=== PATIENT | female | born 1965 | race Caucasian/White ===

== ENCOUNTER → 2020-10-19 | Day surgery (SDC) | payer MEDICAID ==
[~2020-10-19] VITALS: Ht 160 cm; Wt 73.9 kg
[~2020-10-19] MED LIST: BALANCED SALT IRRIG SOLN 15ML ONE; BALANCED SALT IRRIG SOLN COMB1 500ML OP ONE; CEFAZOLIN SODIUM 1000MG/VIAL ONE; CIPROFLOXACIN 0.3% OPHTH SOLN 2.5ML ONE; DEXAMETHASONE 4MG/ML 1ML VIAL ONE; DIPHENHYDRAMINE 50MG/ML VIAL ONE; FENTANYL CITRATE/PF 50MCG/ML 2ML VIAL ONE; HYALURONATE SODIUM 10 MG/ML 0.55ML SYRINGE IO ONE; HYDRALAZINE 20MG/ML VIAL ONE; HYDROMORPHONE HCL/PF 2MG/ML (OR) ONE; INSULIN REGULAR (HUMULIN R) 300UNITS/3ML VIAL SUBCUT NR; INSULIN REGULAR (HUMULIN R) 300UNITS/3ML VIAL SUBCUT ONE; INSULIN REGULAR (HUMULIN R) UD 100 UNITS/ML SYR SUBCUT NR; LIDOCAINE HCL 1% 20ML VIAL (Pyxis) INJ ONE; LIDOCAINE HCL/PF 2% 20 MG/ML 10ML VIAL ONE; METF-414 PO; MIDAZOLAM HCL 2 MG/2 ML VIAL ONE; NEO/POLYMYX B SULF/DEXAMETH OPHTH OINT 3.5GM ONE; PHENYLEPHRINE HCL 10% OPHTH DROPS 5ML LEFTEYE SCH; PREDNISOLONE ACETATE 1% OPHTH DROPS 5ML ONE; PROPOFOL 200MG/20ML VIAL IV ONE; ROCURONIUM BROMIDE 10MG/ML VIAL 5ML IV ONE; SODIUM CHLORIDE 0.9% 1,000 ML IV SCH; TROPICAMIDE 1% OPHTH DROPS 15ML LEFTEYE SCH; TROPICAMIDE 1% OPHTH DROPS 15ML ONE; TRYPAN BLUE 0.5 ML DISP.SYRIN IO ONE
[2020-10-19 08:17] LABS: UCG SCREEN NEGATIVE
== END | disposition home or self-care (01) ==
LOC: OR 07:34
PROVIDERS: ATTEND Ophthalmology
DX: E11.36 Type 2 diabetes mellitus with diabetic cataract (principal); H25.22 Age-related cataract, morgagnian type, left eye; Z79.84 Long term (current) use of oral hypoglycemic drugs; Z79.899 Other long term (current) drug therapy; Z98.890 Other specified postprocedural states
CPT/HCPCS: 66982; 81025; 82962; J0690; J1200; J1815; J2250; J3010; J3490; Q9957; V2632; J0360; J1100; J1170; J2704

== ENCOUNTER → 2020-10-19 | Outpatient (CLI) | payer MEDICAID ==
[~2020-10-19] MED LIST changes: -BALANCED SALT IRRIG SOLN 15ML ONE; -BALANCED SALT IRRIG SOLN COMB1 500ML OP ONE; -CEFAZOLIN SODIUM 1000MG/VIAL ONE; -CIPROFLOXACIN 0.3% OPHTH SOLN 2.5ML ONE; -DEXAMETHASONE 4MG/ML 1ML VIAL ONE; -DIPHENHYDRAMINE 50MG/ML VIAL ONE; -FENTANYL CITRATE/PF 50MCG/ML 2ML VIAL ONE; -HYALURONATE SODIUM 10 MG/ML 0.55ML SYRINGE IO ONE; -HYDRALAZINE 20MG/ML VIAL ONE; -HYDROMORPHONE HCL/PF 2MG/ML (OR) ONE; -INSULIN REGULAR (HUMULIN R) 300UNITS/3ML VIAL SUBCUT NR; -INSULIN REGULAR (HUMULIN R) 300UNITS/3ML VIAL SUBCUT ONE; -INSULIN REGULAR (HUMULIN R) UD 100 UNITS/ML SYR SUBCUT NR; -LIDOCAINE HCL 1% 20ML VIAL (Pyxis) INJ ONE; -LIDOCAINE HCL/PF 2% 20 MG/ML 10ML VIAL ONE; -MIDAZOLAM HCL 2 MG/2 ML VIAL ONE; -NEO/POLYMYX B SULF/DEXAMETH OPHTH OINT 3.5GM ONE; -PHENYLEPHRINE HCL 10% OPHTH DROPS 5ML LEFTEYE SCH; -PREDNISOLONE ACETATE 1% OPHTH DROPS 5ML ONE; -PROPOFOL 200MG/20ML VIAL IV ONE; -ROCURONIUM BROMIDE 10MG/ML VIAL 5ML IV ONE; -SODIUM CHLORIDE 0.9% 1,000 ML IV SCH; -TROPICAMIDE 1% OPHTH DROPS 15ML LEFTEYE SCH; -TROPICAMIDE 1% OPHTH DROPS 15ML ONE; -TRYPAN BLUE 0.5 ML DISP.SYRIN IO ONE
== END | disposition home or self-care (01) ==
LOC: LAB 06:31
PROVIDERS: ATTEND Ophthalmology
DX: Z01.812 Encounter for preprocedural laboratory examination (principal); Z20.822 Contact with and (suspected) exposure to COVID-19
CPT/HCPCS: 87426

== ENCOUNTER → 2024-01-29 | Day surgery (SDC) | payer MEDICAID ==
[~2024-01-29] VITALS: Ht 157.5 cm; Wt 72.6 kg
[~2024-01-29] MED LIST changes: +BALANCED SALT IRRIG SOLN 15ML ONE; +BALANCED SALT IRRIG SOLN COMB1 500ML OP NR; +CYCLOPENTOLATE HCL 1% OPHTH DROPS 2ML RIGHTEYE NR; +FENTANYL CITRATE/PF 50MCG/ML 2ML VIAL ONE; +HYALURONATE SODIUM 10 MG/ML 0.55ML SYRINGE IO ONE; +LEVVL SQ; +MIDAZOLAM HCL 2 MG/2 ML VIAL ONE; +PHENYLEPHRINE HCL 10% OPHTH DROPS 5ML RIGHTEYE NR; +TROPICAMIDE 1% OPHTH DROPS 15ML RIGHTEYE NR; +TRYPAN BLUE 0.5 ML DISP.SYRIN IO ONE
[2024-01-29] MEDS: SODIUM CHLORIDE 0.9% 1,000 ML IV SCH (08:21)
== END | disposition home or self-care (01) ==
LOC: OR 07:20
PROVIDERS: ATTEND Ophthalmology
DX: E11.36 Type 2 diabetes mellitus with diabetic cataract (principal); H25.21 Age-related cataract, morgagnian type, right eye; Z79.899 Other long term (current) drug therapy; Z79.4 Long term (current) use of insulin; Z98.890 Other specified postprocedural states
CPT/HCPCS: 66984; 82962; Q9957; J3010; J3490 ×2; J2250; V2632